=== PATIENT | male | born 1985 | race Caucasian/White ===

== ENCOUNTER 2019-03-04 21:53 | Observation (INO) | payer OTHER ==
[2019-03-04 22:03] VITALS: RESP 18
[2019-03-04] MEDS ORDERED: MORPHINE SULFATE 4 MG/ML SYRINGE IVP PRN (22:28)
[2019-03-04] MEDS ORDERED: SODIUM CHLORIDE 0.9% 1,000 ML IV STA (22:28)
[2019-03-04] MEDS ORDERED: ONDANSETRON 4 MG/2 ML VIAL IVP STA (22:28)
--- NOTE | 2019-03-04 22:31 | ED ---
General Adult HPI - General Chief complaint: Abdominal Pain Stated complaint: Abd Pain Time Seen by Provider: 03/04/19 22:22 Source: patient Mode of arrival: wheelchair Limitations: no limitations - History of Present Illness Initial comments: Dictation was produced using [employer] dictation software. please excuse any grammatical, word or spelling errors. Chief Complaint: 23-year-old male presents with abdominal pain, nausea and vomiting. History of Present Illness: I've-year-old male. History is limited secondary to peaches medical condition. Patient is repeating. According to patient and his significant other patient has been having abdominal symptoms that have been acutely worsened over the last 3-4 days. Patient states that he had CT and lab workup performed. He is told that he has inflammation to his intestines. He is in antibiotics however unable to name the antibiotics he is on. He reports that his pain is towards the right lower quadrant. He's been having very poor by mouth intolerance. Patient denies any fever, chills or night sweats. Patient states his emesis is clear. He is not able to keep anything down. Patient denies any medical problems. The ROS documented in this emergency department record has been reviewed and confirmed by me. Those systems with pertinent positive or negative responses have been documented in the HPI. All other systems are other negative and/or noncontributory. PHYSICAL EXAM: General Impression: Alert and oriented x3, acute distress secondary to pain HEENT: Normocephalic atraumatic, extra-ocular movements intact, pupils equal and reactive to light bilaterally, mucous membranes moist. Cardiovascular: Heart regular rate and rhythm, S1&S2 audible, no murmurs, rubs or gallops Chest: Lungs clear to auscultation bilaterally, no rhonchi, no wheeze, no rales Abdomen: Diffuse abdominal tenderness, worse in the right lower quadrant Musculoskeletal: Pulses present and equal in all extremities, no peripheral edema Motor: no focal deficits noted Neurological: CN II-XII grossly intact, no focal motor or sensory deficits noted Skin: Intact with no visualized rashes ED course: 33-year-old male presents with chief complaint of nausea vomiting, by mouth intolerance and abdominal pain. Vital signs upon arrival are within acceptable limits. Patient is toxic appearing. Return evaluation was obtained. CBC, metabolic panel is unremarkable. Urinaly sis is nonacute. Computed tomography scan of the abdomen and pelvis shows mildly prominent bladder wall which may be secondary to decompression is possible cystitis. Urinalysis unremarkable. No other acute abnormalities noted. This point is unclear what is causing patient's symptoms. Patient seems to be in significant amount of pain. He is reevaluated after initial analgesic and antiemetic administration. This point we will admit patient for GI consultation continued IV hydration, analgesia, antiemetics and monitoring. - Related Data Home Medications Medication Instructions Recorded Confirmed Ciprofloxacin HCl [Cipro] 500 mg PO Q12HR 03/04/19 03/04/19 HYDROcodone/APAP 10-325MG [[place] 1 - 2 tab PO Q6H PRN 03/04/19 03/04/19 10-325] metroNIDAZOLE [Flagyl] 500 mg PO Q8H 03/04/19 03/04/19 Allergies Allergy/AdvReac Type Severity Reaction Status Date / Time Iodinated Contrast- Oral and Allergy Unknown Verified 03/04/19 22:03 IV Dye Review of Systems ROS Statement: Those systems with pertinent positive or pertinent negative responses have been documented in the HPI. ROS Other: All systems not noted in ROS Statement are negative. Past Medical History Past Medical History: No Reported History History of Any Multi-Drug Resistant Organisms: None Reported Past Surgical History: No Surgical Hx Reported Past Psychological History: No Psychological Hx Reported Smoking Status: Never smoker Past Alcohol Use History: None Reported Past Drug Use History: Marijuana General Exam Limitations: no limitations Course Vital Signs 03/04/19 22:01 Temperature 98.0 F Pulse Rate 93 Respiratory 18 Rate Blood Pressure 121/75 O2 Sat by Pulse 100 Oximetry Medical Decision Making - Lab Data Result diagrams: 03/04/19 22:39 03/04/19 22:39 Lab Results 03/04/19 03/04/19 03/04/19 Range/Units 22:39 22:39 22:39 WBC 11.3 H (3.8-10.6) k/uL RBC 5.26 (4.30-5.90) m/uL Hgb 16.3 (13.0-17.5) gm/dL Hct 47.6 (39.0-53.0) % MCV 90.3 (80.0-100.0) fL MCH 31.0 (25.0-35.0) pg MCHC 34.4 (31.0-37.0) g/dL RDW 13.9 (11.5-15.5) % Plt Count 276 (150-450) k/uL Neutrophils % 83 % Lymphocytes % 9 % Monocytes % 5 % Eosinophils % 1 % Basophils % 0 % Neutrophils # 9.3 H (1.3-7.7) k/uL Lymphocytes # 1.0 (1.0-4.8) k/uL Monocytes # 0.6 (0-1.0) k/uL Eosinophils # 0.1 (0-0.7) k/uL Basophils # 0.0 (0-0.2) k/uL Sodium 139 (137-145) mmol/L Potassium 4.1 (3.5-5.1) mmol/L Chloride 99 (98-107) mmol/L Carbon Dioxide 32 H (22-30) mmol/L Anion Gap 8 mmol/L BUN 11 (9-20) mg/dL Creatinine 0.79 (0.66-1.25) mg/dL Est GFR (CKD-EPI)AfAm >90 (>60 ml/min/1.73 sqM) Est GFR (CKD-EPI)NonAf >90 (>60 ml/min/1.73 sqM) Glucose 102 H (74-99) mg/dL Plasma Lactic Acid Jovan 1.2 (0.7-2.0) mmol/L Calcium 10.0 (8.4-10.2) mg/dL Magnesium 2.1 (1.6-2.3) mg/dL Total Bilirubin 1.1 (0.2-1.3) mg/dL AST 22 (17-59) U/L ALT 19 L (21-72) U/L Alkaline Phosphatase 63 (38-126) U/L Total Protein 8.5 H (6.3-8.2) g/dL Albumin 5.0 (3.5-5.0) g/dL Lipase 130 (23-300) U/L Urine Color Urine Appearance (Clear) Urine pH (5.0-8.0) Ur Specific [place] (1.001-1.035) Urine Protein (Negative) Urine Glucose (UA) (Negative) Urine Blood (Negative) Urine Nitrite (Negative) Urine Bilirubin (Negative) Urine Urobilinogen (<2.0) mg/dL Ur Leukocyte Esterase (Negative) Amorphous Sediment (None) /hpf Urine Mucus (None) /hpf 03/04/19 Range/Units 22:53 WBC (3.8-10.6) k/uL RBC (4.30-5.90) m/uL Hgb (13.0-17.5) gm/dL Hct (39.0-53.0) % MCV (80.0-100.0) fL MCH (25.0-35.0) pg MCHC (31.0-37.0) g/dL RDW (11.5-15.5) % Plt Count (150-450) k/uL Neutrophils % % Lymphocytes % % Monocytes % % Eosinophils % % Basophils % % Neutrophils # (1.3-7.7) k/uL Lymphocytes # (1.0-4.8) k/uL Monocytes # (0-1.0) k/uL Eosinophils # (0-0.7) k/uL Basophils # (0-0.2) k/uL Sodium (137-145) mmol/L Potassium (3.5-5.1) mmol/L Chloride (98-107) mmol/L Carbon Dioxide (22-30) mmol/L Anion Gap mmol/L BUN (9-20) mg/dL Creatinine (0.66-1.25) mg/dL Est GFR (CKD-EPI)AfAm (>60 ml/min/1.73 sqM) Est GFR (CKD-EPI)NonAf (>60 ml/min/1.73 sqM) Glucose (74-99) mg/dL Plasma Lactic Acid Jovan (0.7-2.0) mmol/L Calcium (8.4-10.2) mg/dL Magnesium (1.6-2.3) mg/dL Total Bilirubin (0.2-1.3) mg/dL AST (17-59) U/L ALT (21-72) U/L Alkaline Phosphatase (38-126) U/L Total Protein (6.3-8.2) g/dL Albumin (3.5-5.0) g/dL Lipase (23-300) U/L Urine Color Yellow Urine Appearance Turbid (Clear) Urine pH 8.0 (5.0-8.0) Ur Specific [place] 1.023 (1.001-1.035) Urine Protein Trace H (Negative) Urine Glucose (UA) Negative (Negative) Urine Blood Negative (Negative) Urine Nitrite Negative (Negative) Urine Bilirubin Negative (Negative) Urine Urobilinogen 2.0 (<2.0) mg/dL Ur Leukocyte Esterase Negative (Negative) Amorphous Sediment Moderate H (None) /hpf Urine Mucus Occasional H (None) /hpf Disposition Clinical Impression: Abdominal pain Disposition: ADMITTED IP TO THIS HOSP Condition: Fair Is patient prescribed a controlled substance at d/c from ED?: No Referrals: None,Stated [Primary Care Provider] - 1-2 days Decision Time: 00:28
[2019-03-04 23:04] LABS: Basophils % (A) 0 %; Eosinophils # (A) 0.1 k/uL (0-0.7); Eosinophils % (A) 1 %; HCT 47.6 % (39.0-53.0); HGB 16.3 gm/dL (13.0-17.5); Lymphocytes % (A) 9 %; MCHC 34.4 g/dL (31.0-37.0); MCV 90.3 fL (80.0-100.0); Mean Platelet Volume 7.2; Monocytes # (A) 0.6 k/uL (0-1.0); Monocytes % (A) 5 %; Neutrophils # (A) 9.3 k/uL (1.3-7.7); Neutrophils % (A) 83 %; Platelet Count 276 k/uL (150-450); RBC 5.26 m/uL (4.30-5.90); RDW 13.9 % (11.5-15.5); WBC 11.3 k/uL (3.8-10.6)
[2019-03-04 23:09] LABS: ALT 19 U/L (21-72); AST 22 U/L (17-59); African American GFR (CKD) >90 (>60 ml/min/1.73 sqM); Alkaline Phosphatase 63 U/L (38-126); Anion Gap 8 mmol/L; Blood Urea Nitrogen 11 mg/dL (9-20); Carbon Dioxide 32 mmol/L (22-30); Chloride 99 mmol/L (98-107); Glucose 102 mg/dL (74-99); Lipase 130 U/L (23-300); Magnesium 2.1 mg/dL (1.6-2.3); Potassium 4.1 mmol/L (3.5-5.1); Sodium 139 mmol/L (137-145); Total Bilirubin 1.1 mg/dL (0.2-1.3); Total Protein 8.5 g/dL (6.3-8.2)
[2019-03-04 23:21] LABS: Amorphous Sediment,Urine Moderate /hpf; Appearance,Urine Turbid (Clear); Bilirubin,Urine Negative (Negative); Blood,Urine Negative (Negative); Color,Urine Yellow; Glucose,Urine (UA) Negative (Negative); Ketones,Urine 3+ (Negative); Leukocyte Esterase,Urine Negative (Negative); Mucus,Urine Occasional /hpf; Nitrite,Urine Negative (Negative); Protein,Urine Trace (Negative); Specific Gravity,Urine 1.023 (1.001-1.035)
--- NOTE | 2019-03-05 00:16 | CT ---
EXAM: CT Abdomen and Pelvis With Intravenous Contrast CLINICAL HISTORY: ITS.REASON CT Reason: Pain TECHNIQUE: Axial computed tomography images of the abdomen and pelvis with intravenous contrast. CTDI is 11.77 mGy and DLP is 609.8 mGy-cm. This CT exam was performed using one or more of the following dose reduction techniques: automated exposure control, adjustment of the mA and/or kV according to patient size, and/or use of iterative reconstruction technique. COMPARISON: None FINDINGS: Liver: Normal. No focal lesion. Spleen: Borderline size of the spleen. No focal lesion. Gallbladder: Contracted or surgically absent gallbladder. Pancreas: Normal. No acute inflammation. No mass. Adrenal glands: Normal. No mass. Kidneys: Small hypodensity in the left kidney is too small to definitively characterize. No hydronephrosis or obstructing stone. Bowel: Normal appendix. No bowel obstruction or inflammation. Urinary bladder: Mild prominence of the bladder wall may be secondary to decompression. Reproductive organs: Normal. Muscles: No mass. Subcutaneous tissues: Normal. Peritoneal space: Normal. No free fluid. Lymph nodes: Normal. No lymphadenopathy. Vessels: Normal. No aneurysm or dissection. Bones: No acute fracture. Probable small bone islands in the pelvic bones. Lung bases: Normal. IMPRESSION: 1. Mildly prominent bladder wall may be secondary to decompression. Please correlate with urinalysis if concerned for cystitis. 2. No other acute abnormality in the abdomen or pelvis.
[2019-03-05] MEDS ORDERED: MORPHINE SULFATE 4 MG/ML SYRINGE IV PRN (00:28)
[2019-03-05] MEDS ORDERED: ACETAMINOPHEN TAB 325 MG TAB PO PRN (00:28)
[2019-03-05] MEDS ORDERED: NALOXONE 0.4 MG/ML 1 ML VIAL IV PRN (00:28)
[2019-03-05] MEDS: SODIUM CHLORIDE 0.9% 1,000 ML IV SCH ×3 (01:00→20:03)
[2019-03-05] MEDS: ONDANSETRON 4 MG/2 ML VIAL IVP PRN ×2 (01:13→19:18)
[2019-03-05 01:14] LABS: Amphetamine Screen,Urine Not Detected (NotDetected); Barbiturate Screen,Urine Not Detected (NotDetected); Benzodiazepines Screen,Urine Not Detected (NotDetected); Cocaine Screen,Urine Not Detected (NotDetected); Methadone Screen, Urine Not Detected (NotDetected); Opiate Screen,Urine Detected (NotDetected); Oxycodone Screen, Urine Not Detected (NotDetected); Phencyclidine Screen,Urine Not Detected (NotDetected); Tricyclic Antidepressant,Urine Not Detected (NotDetected); Urn Cannabinoid Scrn Detected (NotDetected)
--- NOTE | 2019-03-05 02:02 | P.HPIM ---
History of Present Illness H&P Date: 03/05/19 The patient is a 33 yo M with PMH of daily marijuana use presented to the ED w/ complaints of intractable nausea and vomiting along with abdominal pain. The patient reports that his symptoms started 3 days ago with nausea and multiple episodes of vomiting daily, for which he was evaluated at [facility] ED on 03/02/19 where he supposedly underwent a CT abd and was notified of some inflammation and was started on oral ciprofloxacin and flagyl and was discharged to home. The patient's symptoms failed to improve and he continued having nausea with 10 episodes of vomiting earlier today. He reports that these symptoms occur every few months and may last days or even weeks and then resolve spontaneously. He is not aware of any prior diagnosis for the symptoms. At time of the interview, he reported LLQ abd pain w/ radiation to LUQ, 02/11, aching-like, w/ no allev or exacerbating features. He denied diarrhea, fever, chills, or dysuria. Further denied chest pain, SOB, palpitations, headache, visual disturbances, recent travel, or sick contacts. He underwent an extensive evaluation in the ED w/ WBC count 11.3, Hgb 16.3, platelets 276, CO2 32, and urine toxicology positive for marijuana. CT abd/pelvis with contrast revealed no acute abnormalities. Review of Systems Pertinent positives and negatives as discussed in HPI, a complete review of systems was performed and all other systems are negative. Past Medical History Past Medical History: No Reported History History of Any Multi-Drug Resistant Organisms: None Reported Past Surgical History: No Surgical Hx Reported Past Psychological History: No Psychological Hx Reported Smoking Status: Never smoker Past Alcohol Use History: None Reported Past Drug Use History: Marijuana - Past Family History Father Family Medical History: Hypertension Medications and Allergies Home Medications Medication Instructions Recorded Confirmed Type Ciprofloxacin HCl [Cipro] 500 mg PO Q12HR 03/04/19 03/04/19 History HYDROcodone/APAP 10-325MG [[place] 1 - 2 tab PO Q6H PRN 03/04/19 03/04/19 History 10-325] metroNIDAZOLE [Flagyl] 500 mg PO Q8H 03/04/19 03/04/19 History Allergies Allergy/AdvReac Type Severity Reaction Status Date / Time Iodinated Contrast- Oral and Allergy Unknown Verified 03/04/19 22:03 IV Dye Physical Exam Vitals: Vital Signs Temp Pulse Resp BP Pulse Ox 03/04/19 22:01 98.0 F 93 18 121/75 100 Intake and Output 03/04/19 03/04/19 03/05/19 14:59 22:59 06:59 Other: Weight 72.575 kg General: non toxic, in no distress, appears at stated age, normal weight Derm: no unusual rashes/lesions no unusual ecchymoses, warm, dry Head: atraumatic, normocephalic, symmetric Eyes: EOMI, no lid lag, anicteric sclera, pupils equal round reactive to light ENT: Nose and ears atraumatic, no thrush, no pharyngeal erythema Neck: No thyromegaly, no cervical lymphadenopathy, trachea midline, supple Mouth: no lip lesion, mucus membranes moist Cardiovascular: S1S2 reg, no murmur, positive posterior tibial pulse bilateral, no edema, capillary refill less than 2 seconds Lungs: CTA bilateral, no rhonchi, no rales , no accessory muscle use Abdominal: Mild right lower quadrant and right quadrant tenderness to palpation, no guarding, no appreciable organomegaly, normal bowel sounds Ext: no gross muscle atrophy, muscle strength 5 out of 5 in all 4 extremities grossly, no contractures, Neuro: CN II-XI grossly intact, light touch intact all 4 extremities, finger to nose within normal limits, Psych: Alert, oriented, appropriate affect Results CBC & Chem 7: 03/04/19 22:39 03/04/19 22:39 Labs: Abnormal Lab Results - Last 24 Hours (Table) 03/04/19 03/04/19 03/04/19 Range/Units 22:39 22:39 22:53 WBC 11.3 H (3.8-10.6) k/uL Neutrophils # 9.3 H (1.3-7.7) k/uL Carbon Dioxide 32 H (22-30) mmol/L Glucose 102 H (74-99) mg/dL ALT 19 L (21-72) U/L Total Protein 8.5 H (6.3-8.2) g/dL Urine Protein Trace H (Negative) Urine Ketones 3+ H (Negative) Amorphous Sediment Moderate H (None) /hpf Urine Mucus Occasional H (None) /hpf Urine Opiates Screen (NotDetected) U Marijuana (THC) Screen (NotDetected) 03/04/19 Range/Units 22:53 WBC (3.8-10.6) k/uL Neutrophils # (1.3-7.7) k/uL Carbon Dioxide (22-30) mmol/L Glucose (74-99) mg/dL ALT (21-72) U/L Total Protein (6.3-8.2) g/dL Urine Protein (Negative) Urine Ketones (Negative) Amorphous Sediment (None) /hpf Urine Mucus (None) /hpf Urine Opiates Screen Detected H (NotDetected) U Marijuana (THC) Screen Detected H (NotDetected) Assessment and Plan Plan: Abdominal pain w/ cyclic vomiting, possibly secondary to cannabinoid hyperemesis syndrome versus colitis -C/w Zofran and Protonix -Morphine prn for pain -GI consulted -C/w IVFs 100 cc/hr -Patient advised on importance of cessation of marijuana use Alkalosis, due to vomiting -C/w IVFs and monitor DVT prophylaxis -Lovenox The patient is admitted with an anticipated less than 2 midnight stay for evaluation of abd pain, nausea, vomiting CODE STATUS:Full Code Discussed with: Patient Anticipated discharge date: 03/06/[address]: Home A total of 40 minutes was spent on the care of this complex patient more than 50% of the time was spent in counseling and care coordination.
[2019-03-05] MEDS: metroNIDAZOLE 500 MG TAB PO SCH ×3 (02:17→18:19)
[2019-03-05] MEDS ORDERED: SCOPOLAMINE 1.5MG/72HR PATCH TRANSDERM SCH (02:30)
[2019-03-05] MEDS: MORPHINE SULFATE 4 MG/ML SYRINGE IV PRN ×4 (04:03→17:49)
[2019-03-05] MEDS: PANTOPRAZOLE 40 MG/10 ML VIAL IV SCH (07:38)
[2019-03-05] MEDS: ENOXAPARIN 40 MG/0.4 ML SYRINGE SQ SCH (07:41)
[2019-03-05] MEDS: CIPROFLOXACIN HCL 500 MG TAB PO SCH ×2 (07:41→20:03)
[2019-03-05 08:05] LABS: HCT 42.5 % (39.0-53.0); HGB 14.3 gm/dL (13.0-17.5); MCHC 33.8 g/dL (31.0-37.0); MCV 91.8 fL (80.0-100.0); Mean Platelet Volume 7.4; Platelet Count 218 k/uL (150-450); RBC 4.63 m/uL (4.30-5.90); RDW 13.9 % (11.5-15.5); WBC 7.2 k/uL (3.8-10.6)
[2019-03-05 08:31] LABS: African American GFR (CKD) >90 (>60 ml/min/1.73 sqM); Anion Gap 6 mmol/L; Blood Urea Nitrogen 10 mg/dL (9-20); Calcium 8.8 mg/dL (8.4-10.2); Carbon Dioxide 31 mmol/L (22-30); Chloride 103 mmol/L (98-107); Glucose 76 mg/dL (74-99); Potassium 4.1 mmol/L (3.5-5.1); Sodium 140 mmol/L (137-145)
--- NOTE | 2019-03-05 10:20 | P.CONS ---
History of Present Illness - Reason for Consult Consult date: 03/05/19 Abdominal pain Requesting physician: Yariel Martin - Chief Complaint Abdominal pain - History of Present Illness 33-year-old male history of cannabinoid usage admitted with acute abdominal pain 3-4 days centered mostly in the right lower quadrant nausea vomiting without fever chills hematemesis hematochezia or melena. Recently evaluated at [place] computed tomography scan with IV and oral contrast reported enteritis small bowel dilated loops in the right lower quadrant normal terminal ileum placed on Cipro Flagyl for possible enteritis. Repeat CT abdomen and pelvis no acute abnormality correlate for possible cystitis. Urinalysis +3 ketones trace protein moderate amorphous sediment and occasional urine mucus. Negative nitrate and leukocyte esterase. THC detected. No recent travels. No changes in diet. No sick contacts. No history of colitis or inflammatory bowel disease. Past medical history of bowel surgery 10 years ago to remove a "cyst" etiology unclear possible scar tissue however he had no previous abdominal surgeries. Unsure if he's had a colonoscopy in the past possibly after his surgery he is unsure. No recent EGD. White count 11.3 presently 7.2. Hemoglobin 14.3. BUN 11. Creatinine 0.7. Review of Systems Constitutional: Denies fever, chills, sweats, weight gain, or loss. HEENT: Negative for migraines, blurred vision or loss, earaches, drainage, tinnitus, oral mucosal lesions, dysphagia, or odynophagia. Cardiac: Negative for chest pain, arrhythmias, or palpitation. Respiratory: Negative for shortness of breath, hemoptysis, cough, or sputum production. Gastrointestinal: See HPI for pertinent findings. Genitourinary: Negative for hematuria, urgency, frequency, polyuria, dysuria, or penile discharge. Musculoskeletal: Negative for muscle aches, swelling, arthritis, and arthralgias. Neurologic: Negative for stroke or TIA. Endocrine: Negative for thyroid problems. Skin: Negative for rash or itching. Psychiatric: Negative history for depression and anxiety Past Medical History Past Medical History: No Reported History History of Any Multi-Drug Resistant Organisms: None Reported Past Surgical History: No Surgical Hx Reported Additional Past Surgical History / Comment(s): removed cyst from intestine Past Anesthesia/Blood Transfusion Reactions: No Reported Reaction Past Psychological History: No Psychological Hx Reported Smoking Status: Never smoker Past Alcohol Use History: None Reported Past Drug Use History: Marijuana - Past Family History Father Family Medical History: Hypertension Mother Family Medical History: No Reported History Medications and Allergies Home Medications Medication Instructions Recorded Confirmed Type Ciprofloxacin HCl [Cipro] 500 mg PO Q12HR 03/04/19 03/05/19 History HYDROcodone/APAP 10-325MG [[place] 1 - 2 tab PO Q6H PRN 03/04/19 03/05/19 History 10-325] metroNIDAZOLE [Flagyl] 500 mg PO Q8H 03/04/19 03/05/19 History Allergies Allergy/AdvReac Type Severity Reaction Status Date / Time Iodinated Contrast- Oral and Allergy Unknown Verified 03/05/19 01:55 IV Dye Physical Exam Vitals: Vital Signs Temp Pulse Pulse Resp BP BP Pulse Ox 03/05/19 07:45 98.3 F 77 18 106/70 98 03/05/19 02:37 18 03/05/19 01:50 98.2 F 84 18 115/69 98 03/04/19 22:01 98.0 F 93 18 121/75 100 Intake and Output 03/04/19 03/05/19 03/05/19 22:59 06:59 14:59 Other: # Voids 1 Weight 72.575 kg General appearance: The patient is alert, oriented, in no acute distress. HET: Head is normocephalic and atraumatic. Pupils are equal and reactive. Oropharynx is clear without lesions. Neck: Supple without lymphadenopathy. Trachea midline. Heart: S1 S2. Regular rate and rhythm. Lungs: No crackles or wheezes are heard. Abdomen: Soft, mild tenderness to the right lower quadrant, nondistended with bowel sounds. No peritoneal signs. No palpable organomegaly or masses. Extremities: Normal skin color and turgor. No cyanosis, rash, ulceration, clubbing, or edema. Radial and pedal pulses are 2/4 bilaterally. Neurological: No focal deficits. Strength and sensation are grossly intact. Results CBC & Chem 7: 03/05/19 07:08 03/05/19 07:08 Labs: Abnormal Lab Results - Last 24 Hours (Table) 03/04/19 03/04/19 03/04/19 Range/Units 22:39 22:39 22:53 WBC 11.3 H (3.8-10.6) k/uL Neutrophils # 9.3 H (1.3-7.7) k/uL Carbon Dioxide 32 H (22-30) mmol/L Glucose 102 H (74-99) mg/dL ALT 19 L (21-72) U/L Total Protein 8.5 H (6.3-8.2) g/dL Urine Protein Trace H (Negative) Urine Ketones 3+ H (Negative) Amorphous Sediment Moderate H (None) /hpf Urine Mucus Occasional H (None) /hpf Urine Opiates Screen (NotDetected) U Marijuana (THC) Screen (NotDetected) 03/04/19 Range/Units 22:53 WBC (3.8-10.6) k/uL Neutrophils # (1.3-7.7) k/uL Carbon Dioxide (22-30) mmol/L Glucose (74-99) mg/dL ALT (21-72) U/L Total Protein (6.3-8.2) g/dL Urine Protein (Negative) Urine Ketones (Negative) Amorphous Sediment (None) /hpf Urine Mucus (None) /hpf Urine Opiates Screen Detected H (NotDetected) U Marijuana (THC) Screen Detected H (NotDetected) CT scan - abdomen: report reviewed (Dr. Galdamez as well as CT report from [facility] reviewed ) Assessment and Plan (1) Abdominal pain Narrative/Plan: 33-year-old male with a history of chronic cannabinoid usage admitted with acute right lower quadrant abdominal pain nausea vomiting without fever hematemesis hematochezia melena. Outside CT from [facility] reported possible enteritis with small bowel dilated loops in the right lower quadrant with normal terminal ileum. Current Visit: Yes Status: Acute Code(s): R10.9 - UNSPECIFIED ABDOMINAL PAIN SNOMED Code(s): 40863663 Plan: 1. Patient is still reporting persistent abdominal cramping will start Bentyl 20 4 times a day. Continue present medical therapy and antibiotics. CBC monitoring. IV hydration. GI prophylaxis Protonix 40 mg daily. Thank you for this kind referral and the opportunity to participate in the care of your patient. This consultation was discussed with Dr. Galdamez. The impression and plan of care have been directed as dictated.
[2019-03-05] MEDS: DICYCLOMINE 20 MG TAB PO SCH ×4 (10:23→20:03)
--- NOTE | 2019-03-05 10:35 | P.PN ---
Subjective Progress Note Date: 03/05/19 Patient seen and examined at bedside. Reports severe right lower quadrant pain, having ongoing nausea and inability to keep any fluids or food down despite no electrolyte abnormalities on his labs but not has not had any vomiting since being admitted, the patient reporting that he was on antibiotics Cipro and Flagyl and Cropsey previously. No acute events overnight. Objective - Vital Signs Vital signs: Vital Signs Temp 98.3 F 03/05/19 07:45 Pulse 77 03/05/19 08:00 Resp 18 03/05/19 08:00 BP 106/70 03/05/19 07:45 Pulse Ox 98 03/05/19 07:45 Intake & Output 03/04/19 03/05/19 03/05/19 18:59 06:59 18:59 Weight 72.575 kg Other: Voiding Method Toilet # Voids 1 - Exam Constitutional: No acute distress, conversant, pleasant Eyes: Anicteric sclerae, moist conjunctiva, no lid-lag, PERRLA ENMT: NC/AT,Oropharynx clear, no erythema, exudates Neck:Supple, FROM, no masses, or JVD, No carotid bruits; No thyromegaly Lungs: Clear to auscultation, Clear to percussion, Normal respiratory effort, no accessory muscle use Cardiovascular: Heart regular in rate and rhythm, No murmurs, gallops, or rubs no peripheral edema Abdominal: Soft tender to palpation right lower quadrant, non distended, no guarding, no rebound or rigidity, Normoactive bowel sounds, Skin: Normal temperature, tone, texture, turgor, No induration No subcutaneous nodules, No rash, lesions, No ulcers Extremities:No digital cyanosis No clubbing, Pedal pulses intact and symmet rical Radial pulses intact and symmetrical Normal gait and station, No calf tenderness Psychiatric: Alert and oriented to person, place and time, Appropriate affect Intact judgement Neuro: Muscles Strength 5/5 in all 4 extremities, Sensation to light touch grossly present throughout, Cranial nerves II-XII grossly intact. No focal sensory deficits - Labs CBC & Chem 7: 03/05/19 07:08 03/05/19 07:08 Labs: Abnormal Lab Results - Last 24 Hours (Table) 03/04/19 03/04/19 03/04/19 Range/Units 22:39 22:39 22:53 WBC 11.3 H (3.8-10.6) k/uL Neutrophils # 9.3 H (1.3-7.7) k/uL Carbon Dioxide 32 H (22-30) mmol/L Glucose 102 H (74-99) mg/dL ALT 19 L (21-72) U/L Total Protein 8.5 H (6.3-8.2) g/dL Urine Protein Trace H (Negative) Urine Ketones 3+ H (Negative) Amorphous Sediment Moderate H (None) /hpf Urine Mucus Occasional H (None) /hpf Urine Opiates Screen (NotDetected) U Marijuana (THC) Screen (NotDetected) 03/04/19 03/05/19 Range/Units 22:53 07:08 WBC (3.8-10.6) k/uL Neutrophils # (1.3-7.7) k/uL Carbon Dioxide 31 H (22-30) mmol/L Glucose (74-99) mg/dL ALT (21-72) U/L Total Protein (6.3-8.2) g/dL Urine Protein (Negative) Urine Ketones (Negative) Amorphous Sediment (None) /hpf Urine Mucus (None) /hpf Urine Opiates Screen Detected H (NotDetected) U Marijuana (THC) Screen Detected H (NotDetected) Assessment and Plan (1) Abdominal pain Narrative/Plan: * Secondary suspected enteritis previous CT abdomen and pelvis done in [place] consistent with dilated bowel loops in the right lower quadrant with normal terminal ileum * Continue antibiotics with Flagyl and ciprofloxacin * Continue morphine and Bentyl for pain * appreciate GI recommendations Current Visit: Yes Status: Acute Code(s): R10.9 - UNSPECIFIED ABDOMINAL PAIN SNOMED Code(s): 37450592 (2) Intractable nausea and vomiting Narrative/Plan: * Continue current medical management with Zofran when necessary continue IV fluids Current Visit: Yes Status: Acute Code(s): R11.2 - NAUSEA WITH VOMITING, UNSPECIFIED SNOMED Code(s): 270209353 (3) Marijuana abuse Current Visit: Yes Status: Acute Code(s): F12.10 - CANNABIS ABUSE, UNCOMPLICATED SNOMED Code(s): 82740334 Plan: * Disposition * Here with abdominal pain due to enteritis continue current management anticipate discharge tomorrow
[2019-03-05] MEDS ORDERED: MORPHINE SULFATE 2 MG/ML SYRINGE IVP PRN (21:09)
[2019-03-05] MEDS: MORPHINE SULFATE 2 MG/ML SYRINGE IVP PRN (23:42)
[2019-03-06] MEDS: metroNIDAZOLE 500 MG TAB PO SCH ×3 (03:03→17:59)
[2019-03-06] MEDS: MORPHINE SULFATE 2 MG/ML SYRINGE IVP PRN ×2 (03:23→06:42)
[2019-03-06] MEDS: ONDANSETRON 4 MG/2 ML VIAL IVP PRN (03:23)
[2019-03-06] MEDS: SODIUM CHLORIDE 0.9% 1,000 ML IV SCH ×2 (05:58→15:42)
[2019-03-06] MEDS ORDERED: HYDROcodone/APAP 5-325MG 1 EACH TAB PO PRN (07:04)
[2019-03-06] MEDS: ENOXAPARIN 40 MG/0.4 ML SYRINGE SQ SCH (07:58)
[2019-03-06] MEDS: CIPROFLOXACIN HCL 500 MG TAB PO SCH ×2 (07:59→20:10)
[2019-03-06] MEDS: DICYCLOMINE 20 MG TAB PO SCH ×4 (07:59→20:10)
[2019-03-06] MEDS: PANTOPRAZOLE 40 MG/10 ML VIAL IV SCH (07:59)
--- NOTE | 2019-03-06 13:36 | P.PN ---
Subjective Progress Note Date: 03/06/19 Principal diagnosis: Abdominal pain 33-year-old male limited with acute abdominal pain suspect enteritis per outside CT. Feels better today. Tolerating small amounts of regular diet. No fevers. Still reports right lower quadrant pain. Receiving Bentyl with some improvement. Oral antibiotics. Objective - Vital Signs Vital signs: Vital Signs Temp 97.8 F 03/06/19 07:11 Pulse 74 03/06/19 12:00 Resp 18 03/06/19 12:00 BP 97/59 03/06/19 07:11 Pulse Ox 97 03/06/19 07:11 Intake & Output 03/05/19 03/06/19 03/06/19 18:59 06:59 18:59 Intake Total 580 150 520 Balance 580 150 520 Intake: Oral 480 150 520 Other 100 Other: Voiding Method Toilet Toilet Toilet # Voids 1 - Exam General appearance: The patient is alert, oriented, in no acute distress. HET: Head is normocephalic and atraumatic. Pupils are equal and reactive. Oropharynx is clear without lesions. Neck: Supple without lymphadenopathy. Trachea midline. Heart: S1 S2. Regular rate and rhythm. Lungs: No crackles or wheezes are heard. Abdomen: Soft, tenderness to the right lower quadrant, nondistended with hyperactive bowel sounds. No peritoneal signs. No palpable organomegaly or masses. Extremities: Normal skin color and turgor. No cyanosis, rash, ulceration, clubbing, or edema. Radial and pedal pulses are 2/4 bilaterally. Neurological: No focal deficits. Strength and sensation are grossly intact. - Labs CBC & Chem 7: 03/05/19 07:08 03/05/19 07:08 Assessment and Plan (1) Abdominal pain Narrative/Plan: 33-year-old male with a history of chronic cannabinoid usage admitted with acute right lower quadrant abdominal pain nausea vomiting without fever hematemesis hematochezia melena. Outside CT from [facility] reported possible enteritis with small bowel dilated loops in the right lower quadrant with normal terminal ileum. Current Visit: Yes Status: Acute Code(s): R10.9 - UNSPECIFIED ABDOMINAL PAIN SNOMED Code(s): 31847740 Plan: 1. Three-view the abdomen. Continue with Bentyl 20 4 times a day. Continue present medical therapy and antibiotics. CBC monitoring. IV hydration. GI prophylaxis Protonix 40 mg daily. Discharge planning after review of abdominal x-ray. Assessment and plan a care discussed with Dr. Galdamez
--- NOTE | 2019-03-06 14:18 | XR ---
EXAMINATION TYPE: XR abdomen complete w decub DATE OF EXAM: 03/06/2019 HISTORY: Pain. Technique: 3 views of the abdomen are submitted. Comparison: None. Findings: There is retained contrast noted throughout the colon from recent CT abdomen pelvis. There is no convincing evidence of pneumoperitoneum. The Bowel gas pattern is nonspecific and nonobstructive. No sizable air-fluid levels are seen. No mass effects are noted. No renal calcifications are identified. IMPRESSION: 1. Nonspecific nonobstructive bowel gas pattern . Retained contrast.
--- NOTE | 2019-03-06 15:02 | P.DS ---
Providers Date of admission: 03/05/19 00:28 Expected date of discharge: 03/06/19 Attending physician: Yariel Martin MD Consults: 03/05/19 00:29 Consult Physician Routine Consulting Provider: Easton Rosenthal Consult Reason/Comments: abdominal pain Do you want consulting provider notified?: Yes Primary care physician: Stated None - Discharge Diagnosis(es) (1) Abdominal pain Current Visit: Yes Status: Acute (2) Intractable nausea and vomiting Current Visit: Yes Status: Acute (3) Marijuana abuse Current Visit: Yes Status: Acute Hospital Course: The patient is a 33-year-old male that was transferred here from [facility] with abdominal pain after he presented there 3 days prior with episodes of intractable nausea and vomiting with right lower quadrant abdominal pain. CT abdomen and pelvis was suggested some information and dilated bowel loops the patient was started on ciprofloxacin and Flagyl and discharged home he then re-presented there and was transferred here for GI consultation. He was treated with supportive regimen with morphine IV, started on Bentyl, and Zofran and continued on IV fluids. His diet was gradually advanced to clears and he was tolerating a bland diet at time of discharge. Repeat x-rays here indicated normal obstructive bowel gas pattern. In the patient was subsequently discharged home with recommendations for bland diet and a prescription for Bentyl. This discharge process took approximately 30 minutes. Focused exam Nonacute abdomen tenderness in the right lower quadrant, negative peritoneal signs with normoactive bowel sounds. Patient Condition at Discharge: Good Plan - Discharge Summary New Discharge Prescriptions: New Dicyclomine [Bentyl] 20 mg PO QID #20 tab Continue metroNIDAZOLE [Flagyl] 500 mg PO Q8H HYDROcodone/APAP 10-325MG [[place] 10-325] 1 - 2 tab PO Q6H PRN PRN Reason: Pain Ciprofloxacin HCl [Cipro] 500 mg PO Q12HR Discharge Medication List Ciprofloxacin HCl [Cipro] 500 mg PO Q12HR 03/04/19 [History] HYDROcodone/APAP 10-325MG [[place] 10-325] 1 - 2 tab PO Q6H PRN 03/04/19 [History] metroNIDAZOLE [Flagyl] 500 mg PO Q8H 03/04/19 [History] Dicyclomine [Bentyl] 20 mg PO QID #20 tab 03/06/19 [Rx] Follow up Appointment(s)/Referral(s): None,Stated [Primary Care Provider] - 1-2 days
[2019-03-06 15:57] VITALS: BP 99/61; PULSE 69; TEMP 98.4
[2019-03-07] MEDS ORDERED: PANTOPRAZOLE 40 MG TABLET PO SCH (09:00)
== END 2019-03-06 21:30 | disposition home or self-care (01) ==
LOC: EC 21:53 → 4SSUR 03-05 00:28 → UNDOADMOB 03-05 00:28 → 1SOBS 03-05 00:28
PROVIDERS: ADMIT Internal Medicine; ATTEND Internal Medicine
DX: R10.31 Right lower quadrant pain (principal); R10.32 Left lower quadrant pain; R11.2 Nausea with vomiting, unspecified; F12.10 Cannabis abuse, uncomplicated; E87.3 Alkalosis; Z82.49 Family history of ischemic heart disease and other diseases of the circulatory system; Z91.041 Radiographic dye allergy status
CPT/HCPCS: 96361 ×4; 96372 ×2; 96375 ×2; 96376 ×3; 96374; 99285; 36415; 80053; 80048; 83605; 83690; 83735; 85025; 85027; 81001; 80306; 74021; 74177; G0378 ×2; J2270 ×4; J2405 ×3; J1650 ×2; C9113 ×2; Q9967

== ENCOUNTER 2022-12-07 02:51 | Emergency (ER) | payer OTHER ==
[2022-12-07 03:06] VITALS: TEMP 98.1
[2022-12-07] MEDS ORDERED: SODIUM CHLORIDE 0.9% 1,000 ML IV ONE (03:09)
[2022-12-07] MEDS ORDERED: ONDANSETRON 4 MG/2 ML VIAL IVP STA (03:09)
[2022-12-07] MEDS ORDERED: HALOPERIDOL LACTATE 5 MG/ML 1 ML VIAL IVP STA (03:44)
[2022-12-07 04:01] VITALS: BP 144/79; PULSE 95; RESP 18
[2022-12-07 04:10] LABS: Basophils % (A) 0 %; Eosinophils # (A) 0.1 k/uL (0-0.7); Eosinophils % (A) 2 %; HCT 39.4 % (39.0-53.0); HGB 14.1 gm/dL (13.0-17.5); Lymphocytes # (A) 1.2 k/uL (1.0-4.8); Lymphocytes % (A) 18 %; MCH 31.9 pg (25.0-35.0); MCHC 35.9 g/dL (31.0-37.0); MCV 88.8 fL (80.0-100.0); Mean Platelet Volume 8.3; Monocytes # (A) 0.6 k/uL (0-1.0); Monocytes % (A) 9 %; Neutrophils # (A) 4.6 k/uL (1.3-7.7); Neutrophils % (A) 69 %; Platelet Count 298 k/uL (150-450); RBC 4.44 m/uL (4.30-5.90); WBC 6.7 k/uL (3.8-10.6)
[2022-12-07 04:17] LABS: ALT 18 U/L (4-49); AST 21 U/L (17-59); African American GFR (CKD) >90 (>60 ml/min/1.73 sqM); Albumin 4.6 g/dL (3.5-5.0); Alkaline Phosphatase 64 U/L (38-126); Anion Gap 8 mmol/L; Blood Urea Nitrogen 10 mg/dL (9-20); Calcium 9.4 mg/dL (8.4-10.2); Carbon Dioxide 33 mmol/L (22-30); Chloride 98 mmol/L (98-107); Glucose 106 mg/dL (74-99); Lipase 57 U/L (23-300); Magnesium 1.9 mg/dL (1.6-2.3); Non-African American GFR(CKD) >90 (>60 ml/min/1.73 sqM); Potassium 3.5 mmol/L (3.5-5.1); Sodium 139 mmol/L (137-145); Total Bilirubin 0.9 mg/dL (0.2-1.3); Total Protein 8.2 g/dL (6.3-8.2)
--- NOTE | 2022-12-07 04:49 | ED ---
General Adult HPI - General Chief complaint: Abdominal Pain Stated complaint: vomiting Time Seen by Provider: 12/07/22 03:08 Source: patient Mode of arrival: ambulatory Limitations: no limitations - History of Present Illness Initial comments: This is a 37-year-old male with no past medical history presents emergency department for nausea and vomiting. The patient stated that he had multiple episodes of vomiting today and stated that he has had chronic nausea and vomiting over the last several months to years. The patient stated that nothing did change today however he was in the emergency department with his significant other so he decided to get evaluated. The patient stated that he has seen a physician were laboratory workup and imaging was obtained however nothing was determined therefore he thought he could get reevaluated today to figure out what was going on. The patient did report daily marijuana use including using 2-3 times per day. The patient stated that he had generalized abdominal pain but did not have any specific area of pain. The patient denied any other acute pain or complaints at this time. - Related Data Home Medications Medication Instructions Recorded Confirmed Ciprofloxacin HCl [Cipro] 500 mg PO Q12HR 03/04/19 03/05/19 HYDROcodone/APAP 10-325MG [[place] 1 - 2 tab PO Q6H PRN 03/04/19 03/05/19 10-325] metroNIDAZOLE [Flagyl] 500 mg PO Q8H 03/04/19 03/05/19 Previous Rx's Medication Instructions Recorded Dicyclomine [Bentyl] 20 mg PO QID #20 tab 03/06/19 Allergies Allergy/AdvReac Type Severity Reaction Status Date / Time Iodinated Contrast Media Allergy Unknown Verified 03/05/19 01:55 [Iodinated Contrast- Oral and IV Dye] Penicillins Allergy Rash/Hives Verified 12/07/22 03:06 Review of Systems ROS Statement: Those systems with pertinent positive or pertinent negative responses have been documented in the HPI. ROS Other: All systems not noted in ROS Statement are negative. Past Medical History Past Medical History: No Reported History History of Any Multi-Drug Resistant Organisms: None Reported Past Surgical History: No Surgical Hx Reported Additional Past Surgical History / Comment(s): removed cyst from intestine Past Anesthesia/Blood Transfusion Reactions: No Reported Reaction Past Psychological History: No Psychological Hx Reported Smoking Status: Never smoker Past Alcohol Use History: None Reported Past Drug Use History: Marijuana - Past Family History Father Family Medical History: Hypertension Mother Family Medical History: No Reported History General Exam Limitations: no limitations General appearance: alert, in no apparent distress Head exam: Present: atraumatic, normocephalic, normal inspection Eye exam: Present: normal appearance, PERRL Pupils: Present: normal accommodation ENT exam: Present: normal exam, normal oropharynx, mucous membranes moist Neck exam: Present: normal inspection, full ROM Respiratory exam: Present: normal lung sounds bilaterally Cardiovascular Exam: Present: regular rate, normal rhythm, normal heart sounds GI/Abdominal exam: Present: soft, tenderness (Mild tenderness palpation in all abdominal quadrants), normal bowel sounds Extremities exam: Present: normal inspection, full ROM Back exam: Present: normal inspection, full ROM Neurological exam: Present: alert, oriented X3, CN II-XII intact Psychiatric exam: Present: normal affect, normal mood Skin exam: Present: warm, dry Course Vital Signs 12/07/22 12/07/22 03:01 03:57 Temperature 98.1 F Pulse Rate 82 95 Respiratory 14 18 Rate Blood Pressure 120/56 144/79 O2 Sat by Pulse 99 100 Oximetry Medical Decision Making - Medical Decision Making Was pt. sent in by a medical professional or institution (, PA, DENTAL PROFESSIONAL, urgent care, hospital, or snf...) When possible be specific @ -No Did you speak to anyone other than the patient for history (EMS, parent, family, police, friend...)? What history was obtained from this source @ -No Did you review nursing and triage notes (agree or disagree)? Why? @ -I reviewed and agree with nursing and triage notes Were old charts reviewed (outside hosp., previous admission, EMS record, old EKG, old radiological studies, urgent care reports/EKG's, snf records)? Report findings @ -No old charts were reviewed Differential Diagnosis (chest pain, altered mental status, abdominal pain women, abdominal pain men, vaginal bleeding, weakness, fever, dyspnea, syncope, headache, dizziness, GI bleed, back pain, seizure, CVA, palpatations, mental health)? @ -Cannabinoids hyperemesis, gastroenteritis, dehydration EKG interpreted by me (3pts min.). @ -None X-rays interpreted by me (1pt min.). @ -None done CT interpreted by me (1pt min.). @ -CT abdomen and pelvis with contrast was obtained and was interpreted by myself showing no acute process. U/S interpreted by me (1pt. min.). @ -None done What testing was considered but not performed or refused? (CT, X-rays, U/S, labs)? Why? @ -None What meds were considered but not given or refused? Why? @ -None Did you discuss the management of the patient with other professionals (professionals i.e. Dr., PA, DENTAL PROFESSIONAL, lab, RT, psych nurse, social work faculty member, tank builder helper, teacher, hydrographical technical officer, case fitter)? Give summary @ -No Was smoking cessation discussed for >3mins.? @ -Yes Was critical care preformed (if so, how long)? @ -No Were there social determinants of health that impacted care today? How? (Homelessness, low income, unemployed, alcoholism, drug addiction, transportation, low edu. Level, literacy, decrease access to med. care, prison, rehab)? @ -No Was there de-escalation of care discussed even if they declined (Discuss DNR or withdrawal of care, Hospice)? DNR status @ -No What co-morbidities impacted this encounter? (DM, HTN, Smoking, COPD, CAD, Cancer, CVA, ARF, Chemo, Hep., AIDS, mental health diagnosis, sleep apnea, morbid obesity)? @ -None Was patient admitted / discharged? Hospital course, mention meds given and route, prescriptions, significant lab abnormalities, going to OR and other pertinent info. @ -The patient was seen and evaluated emergency department. Physical exam, the patient was resting in bed without any acute distress with normal vital signs. The patient had previously vomited and stated that he was mildly nauseous. Laboratory workup was initiated. The patient was given Zofran as well as IV fluids but stated that his nausea was still persistent therefore the patient was given 2.5 mg of Haldol IV. Laboratory workup was largely within normal limits. Computed tomography scan was negative and the patient had significant improvement after the Haldol was given. The patient likely had symptoms secondary to cannabinoids hyperemesis syndrome and the patient was counseled on this. The patient was stable for discharge home and was advised to follow-up with his private care physician for further workup and evaluation. The patient was agreeable to this and all his questions were answered. The patient was discharged home in stable condition. Undiagnosed new problem with uncertain prognosis? @ -No Drug Therapy requiring intensive monitoring for toxicity (Heparin, Nitro, Insul in, Cardizem)? @ -No Were any procedures done? @ -No Diagnosis/symptom? @ -Cannabinoids hyperemesis syndrome Acute, or Chronic, or Acute on Chronic? @ -Acute on chronic Uncomplicated (without systemic symptoms) or Complicated (systemic symptoms)? @ -Uncomplicated Side effects of treatment? @ -No Exacerbation, Progression, or Severe Exacerbation? @ -No Poses a threat to life or bodily function? How? (Chest pain, [place], [place], pneumonia, PE, COPD, DKA, ARF, appy, cholecystitis, CVA, Diverticulitis, Homicidal, Suicidal, threat to staff... and all critical care pts) @ -No - Lab Data Result diagrams: 12/07/22 03:37 12/07/22 03:37 Lab Results 12/07/22 12/07/22 12/07/22 Range/Units 03:37 03:37 03:37 WBC 6.7 (3.8-10.6) k/uL RBC 4.44 (4.30-5.90) m/uL Hgb 14.1 (13.0-17.5) gm/dL Hct 39.4 (39.0-53.0) % MCV 88.8 (80.0-100.0) fL MCH 31.9 (25.0-35.0) pg MCHC 35.9 (31.0-37.0) g/dL RDW 13.0 (11.5-15.5) % Plt Count 298 (150-450) k/uL MPV 8.3 Neutrophils % 69 % Lymphocytes % 18 % Monocytes % 9 % Eosinophils % 2 % Basophils % 0 % Neutrophils # 4.6 (1.3-7.7) k/uL Lymphocytes # 1.2 (1.0-4.8) k/uL Monocytes # 0.6 (0-1.0) k/uL Eosinophils # 0.1 (0-0.7) k/uL Basophils # 0.0 (0-0.2) k/uL Sodium 139 (137-145) mmol/L Potassium 3.5 (3.5-5.1) mmol/L Chloride 98 (98-107) mmol/L Carbon Dioxide 33 H (22-30) mmol/L Anion Gap 8 mmol/L BUN 10 (9-20) mg/dL Creatinine 0.72 (0.66-1.25) mg/dL Est GFR (CKD-EPI)AfAm >90 (>60 ml/min/1.73 sqM) Est GFR (CKD-EPI)NonAf >90 (>60 ml/min/1.73 sqM) Glucose 106 H (74-99) mg/dL Calcium 9.4 (8.4-10.2) mg/dL Magnesium 1.9 (1.6-2.3) mg/dL Total Bilirubin 0.9 (0.2-1.3) mg/dL AST 21 (17-59) U/L ALT 18 (4-49) U/L Alkaline Phosphatase 64 (38-126) U/L Total Protein 8.2 (6.3-8.2) g/dL Albumin 4.6 (3.5-5.0) g/dL Lipase 57 (23-300) U/L Urine Color Yellow Urine Appearance Clear (Clear) Urine pH 7.5 (5.0-8.0) Ur Specific Conrad 1.010 (1.001-1.035) Urine Protein Negative (Negative) Urine Glucose (UA) Negative (Negative) Urine Ketones 2+ H (Negative) Urine Blood Negative (Negative) Urine Nitrite Negative (Negative) Urine Bilirubin Negative (Negative) Urine Urobilinogen <2.0 (<2.0) mg/dL Ur Leukocyte Esterase Negative (Negative) Disposition Clinical Impression: Cannabinoid hyperemesis syndrome Disposition: HOME SELF-CARE Condition: Stable Instructions (If sedation given, give patient instructions): Cannabis Abuse (ED) Is patient prescribed a controlled substance at d/c from ED?: No Referrals: None,Stated [Primary Care Provider] - 1-2 days Time of Disposition: 05:15
[2022-12-07 05:02] LABS: Appearance,Urine Clear (Clear); Bilirubin,Urine Negative (Negative); Blood,Urine Negative (Negative); Color,Urine Yellow; Glucose,Urine (UA) Negative (Negative); Ketones,Urine 2+ (Negative); Leukocyte Esterase,Urine Negative (Negative); Nitrite,Urine Negative (Negative); PH, Urine 7.5 (5.0-8.0); Protein,Urine Negative (Negative); Urobilinogen,Urine <2.0 mg/dL (<2.0)
--- NOTE | 2022-12-07 05:09 | CT ---
EXAMINATION TYPE: CT abdomen pelvis wo con DATE OF EXAM: 12/07/2022 HISTORY: Acute right lower quadrant pain and vomiting CT DLP: 496.8 mGycm. Automated Exposure Control for Dose Reduction was Utilized. TECHNIQUE: CT scan of the abdomen and pelvis is performed without oral or IV contrast. COMPARISON: CT abdomen and pelvis March 04, 2019 FINDINGS: Within the limitations of a non-contrast study, the following observations are made. LUNG BASES: No significant abnormality is appreciated. LIVER/GB: No significant abnormality is appreciated. PANCREAS: No significant abnormality is seen. SPLEEN: No significant abnormality is seen. ADRENALS: No significant abnormality is seen. KIDNEYS: No renal calculi or hydronephrosis is seen bilaterally. BOWEL: Appendix within normal limits for base of cecum. GENITAL ORGANS: No gross abnormality seen. LYMPH NODES: No greater than 1cm abdominal or pelvic lymph nodes are appreciated. OSSEOUS STRUCTURES: Nonspecific Sclerotic lesion right hip level redemonstrated presumably nonaggress savana. OTHER: No significant additional abnormality is seen. IMPRESSION: No CT evidence for acute appendicitis. No acute findings identified on noncontrast CT. No significant change from prior.
== END 2022-12-07 05:35 | disposition home or self-care (01) ==
LOC: EC 02:51
DX: F12.90 Cannabis use, unspecified, uncomplicated (principal); Z88.0 Allergy status to penicillin; Z91.041 Radiographic dye allergy status
CPT/HCPCS: 36415; 80053; 83690; 83735; 85025; 81003; 74176; 99284; 96374; 96375; 96361; J1630; J2405